=== PATIENT | female | born 1930 | race Caucasian/White ===

== ENCOUNTER 2017-02-23 17:57 | Emergency (ER) | payer MEDICARE, OTHER ==
[~2017-02-23] VITALS: Ht 157.5 cm; Wt 81.0 kg
[~2017-02-23 17:57] MED LIST: ADVIL MIGRAI200 M1 OR; CEFTIN500 MG PO; CIPRO400 MG/200 IV; CIPRO500 MG OR; CLINDAMYCIN150 MG PO; CLINDAMYCIN300 M1 OR; CLONIDINE0.1 MG PO; COZAAR50 MG OR; ENDOCET1 TA1 OR; FISH OIL1000 MG PO; FLURAZEPAM30 MG OR; FLURAZEPAM30 MG PO; HYDROXYZ HCL25 MG PO; KEFLEX500 MG PO; LISINOP/HCTZ1 TAB OR; LOSARTAN/HCT1 TA2 PO; MULT VITAMI1 PO; MULTIVITAMI1 PO; OMEGA-3 FISH1000 MG PO; OXYCO/APAP1 TA5 PO; PAROXETINE HCL40 MG PO; PAROXETINE20 MG PO; PERCOCET 5/325M1 TAB PO; POOR HISTORIAN; PRADAXA150 MG PO; ROXICET1 TA1 OR; ROXICET1 TAB OR; TYLENOL ARTH650 MG OR; VANCOMYCIN HCL1 GM IV; VITAMIN B-12250 MCG PO; VITAMIN D32000 UNI2 PO; ZOSTAVAX IM
[2017-02-23] MEDS ORDERED: BLOOD PRESSURE MED (18:15)
[2017-02-23 18:24] LABS: HEMATOCRIT 36.7 % (37.0-47.0); HEMOGLOBIN 12.1 g/dl (12.0-16.0); IMMATURE GRANULOCYTES 0.3 % (0.0-1.0); MEAN CELL VOLUME 86.2 fL CALC (80.0-100.0); MEAN CORPUSCULAR HGB 28.4 pG CALC (26.0-32.0); RED BLOOD COUNT 4.26 mill/uL (4.20-5.60); RED CELL DISTRI WIDTH 15.7 % (11.5-15.5)
[2017-02-23 18:40] LABS: ALBUMIN 3.9 g/dL (3.2-5.0); ALKALINE PHOSPHATASE 101 u/l (38-126); ANION GAP 15 (6-22 (CALC)); BILIRUBIN, TOTAL 0.3 mg/dL (0.0-1.4); BUN 18 mg/dL (8-23); BUN/CREATININE RATIO 12 (12-20 (CALC)); CARBON DIOXIDE 25 mmol/l (22-30); CHLORIDE 103 mmol/l (95-108); CREATININE 1.6 mg/dL (0.5-1.0); GFR 31 ML/MIN (>=60 (CALC)); GFR FOR AFR.AMER. 37 ML/MIN (>=60 (CALC)); GLUCOSE 101 mg/dL (82-115); POTASSIUM 3.2 mmol/l (3.5-5.1); SGOT/AST 21 u/l (9-36); SGPT/ALT 29 u/l (11-66); SODIUM 140 mmol/l (137-146); TOTAL PROTEIN 6.8 g/dL (6.3-8.2)
[2017-02-23 18:43] LABS: URINE BILIRUBIN - DIPSTICK NEGATIVE (NEGATIVE); URINE BLOOD DIPSTICK NEGATIVE (NEGATIVE); URINE COLOR YELLOW; URINE GLUCOSE - DIPSTICK NEGATIVE (NEGATIVE); URINE KETONE NEGATIVE (NEGATIVE); URINE LEUK ESTERASE NEGATIVE (NEGATIVE); URINE NITRITE - DIPSTICK NEGATIVE (Negative); URINE PROTEIN - DIPSTICK NEGATIVE (NEG-TRACE); URINE UROBILINOGEN - DIPSTICK 0.2 E.U./dL (0.2)
[2017-02-23 19:37] LABS: URINE CLARITY CLEAR
[2017-02-23 21:06] LABS: MYOGLOBIN 56 ng/mL (0 - 62)
[2017-02-23] MEDS ORDERED: POT CHLORIDE20 ME2 PO (21:34)
[2017-02-23 22:36] VITALS: BP 152/74
== END 2017-02-23 22:37 | disposition home or self-care (01) ==
LOC: ED 17:57
PROVIDERS: Emergency Medicine
DX: R60.0 Localized edema (principal); N28.9 Disorder of kidney and ureter, unspecified; E87.6 Hypokalemia; R50.9 Fever, unspecified; R53.1 Weakness; R06.02 Shortness of breath; Z86.73 Personal history of transient ischemic attack (TIA), and cerebral infarction without residual deficits; I10 Essential (primary) hypertension

== ENCOUNTER 2017-02-27 12:20 | Observation (INO) | payer MEDICARE, OTHER ==
[~2017-02-27] VITALS: Ht 157.5 cm; Wt 85.4 kg
[~2017-02-27 12:20] MED LIST changes: +BLOOD PRESSURE MED; +POT CHLORIDE20 ME2 PO
[2017-02-27 18:15] VITALS: BP 158/87
[2017-02-27 19:31] VITALS: BP 139/69
[2017-02-28 04:00] VITALS: BP 123/70
[2017-02-28 05:30] LABS: HEMATOCRIT 34.5 % (37.0-47.0); HEMOGLOBIN 11.2 g/dl (12.0-16.0); MEAN CELL VOLUME 88.5 fL CALC (80.0-100.0); MEAN CORPUSCULAR HGB 28.7 pG CALC (26.0-32.0); MEAN CORPUSCULAR HGB CONC 32.5 g/L CALC (32.0-36.0); RED BLOOD COUNT 3.9 mill/uL (4.20-5.60); RED CELL DISTRI WIDTH 15.6 % (11.5-15.5)
[2017-02-28 05:39] LABS: CALCIUM 8.8 mg/dL (8.4-10.2); CREATININE 1.1 mg/dL (0.5-1.0); POTASSIUM 3.7 mmol/l (3.5-5.1)
[2017-02-28 07:34] VITALS: BP 125/56
== END 2017-02-28 11:10 | disposition home or self-care (01) ==
LOC: ED 12:20 → ED-I 17:11 → ED 17:40 → MS2 17:41
PROVIDERS: ADMIT Internal Medicine; ATTEND Internal Medicine
PROC: 0SSBXZZ Reposition Left Hip Joint, External Approach (ICD-10-PCS; principal; 2017-02-27)
DX: T84.021A Dislocation of internal left hip prosthesis, initial encounter (principal); I10 Essential (primary) hypertension; F41.9 Anxiety disorder, unspecified; M19.90 Unspecified osteoarthritis, unspecified site; Y83.1 Surgical operation with implant of artificial internal device as the cause of abnormal reaction of the patient, or of later complication, without mention of misadventure at the time of the procedure; Z86.73 Personal history of transient ischemic attack (TIA), and cerebral infarction without residual deficits; Z85.038 Personal history of other malignant neoplasm of large intestine; Z92.3 Personal history of irradiation; Z92.21 Personal history of antineoplastic chemotherapy; Z96.653 Presence of artificial knee joint, bilateral; Z93.3 Colostomy status

== ENCOUNTER 2017-04-18 13:05 | Emergency (ER) | payer MEDICARE, OTHER ==
[~2017-04-18] VITALS: Ht 157.5 cm; Wt 82.0 kg
[2017-04-18 14:45] LABS: HEMATOCRIT 40.4 % (37.0-47.0); HEMOGLOBIN 13.1 g/dl (12.0-16.0); IMMATURE GRANULOCYTES 0.2 % (0.0-1.0); MEAN CELL VOLUME 89.4 fL CALC (80.0-100.0); MEAN CORPUSCULAR HGB CONC 32.4 g/L CALC (32.0-36.0); NEUT# 2.97 thou/uL (2.00-7.15); RED BLOOD COUNT 4.52 mill/uL (4.20-5.60); RED CELL DISTRI WIDTH 14.4 % (11.5-15.5)
[2017-04-18 15:01] LABS: ALBUMIN 3.5 g/dL (3.2-5.0); BILIRUBIN, TOTAL 0.4 mg/dL (0.0-1.4); CALCIUM 9.5 mg/dL (8.4-10.2); CREATININE 1.1 mg/dL (0.5-1.0); POTASSIUM 3.3 mmol/l (3.5-5.1)
[2017-04-18 18:29] VITALS: BP 146/67
== END 2017-04-18 18:55 | disposition home or self-care (01) ==
LOC: ED 13:05
PROVIDERS: Emergency Medicine
PROC: 0SSBXZZ Reposition Left Hip Joint, External Approach (ICD-10-PCS; principal; 2017-04-18)
DX: T84.021A Dislocation of internal left hip prosthesis, initial encounter (principal); Y83.1 Surgical operation with implant of artificial internal device as the cause of abnormal reaction of the patient, or of later complication, without mention of misadventure at the time of the procedure; Z96.653 Presence of artificial knee joint, bilateral

== ENCOUNTER 2017-05-15 20:10 | Emergency (ER) | payer MEDICARE, OTHER ==
[~2017-05-15] VITALS: Ht 157.5 cm; Wt 84.0 kg
[~2017-05-15 20:10] MED LIST changes: -BLOOD PRESSURE MED; +LOSARTAN PO
[2017-05-15 20:52] LABS: IMMATURE GRANULOCYTES 0.3 % (0.0-1.0); MEAN CELL VOLUME 90.9 fL CALC (80.0-100.0); MEAN CORPUSCULAR HGB 29.7 pG CALC (26.0-32.0); MEAN CORPUSCULAR HGB CONC 32.6 g/L CALC (32.0-36.0); NEUT# 6.87 thou/uL (2.00-7.15); RED BLOOD COUNT 3.64 mill/uL (4.20-5.60); RED CELL DISTRI WIDTH 15.3 % (11.5-15.5)
[2017-05-15 20:53] LABS: HEMATOCRIT 33.1 % (37.0-47.0)
[2017-05-15 21:26] LABS: ALBUMIN 3.3 g/dL (3.2-5.0); ALKALINE PHOSPHATASE 88 u/l (38-126); AMYLASE 38 u/l (30-110); ANION GAP 16 (6-22 (CALC)); BUN 19 mg/dL (8-23); BUN/CREATININE RATIO 18 (12-20 (CALC)); CARBON DIOXIDE 22 mmol/l (22-30); CHLORIDE 105 mmol/l (95-108); CREATININE 1.1 mg/dL (0.5-1.0); GFR 47 ML/MIN (>=60 (CALC)); GFR FOR AFR.AMER. 57 ML/MIN (>=60 (CALC)); LIPASE 54 u/l (23-300); SGOT/AST 28 u/l (9-36); SGPT/ALT 19 u/l (11-66); SODIUM 138 mmol/l (137-146); TOTAL PROTEIN 5.8 g/dL (6.3-8.2)
[2017-05-15 21:28] LABS: BILIRUBIN, TOTAL 0.8 mg/dL (0.0-1.4)
[2017-05-15] MEDS ORDERED: RESTORIL15 MG PO (21:30)
[2017-05-15 21:38] LABS: MYOGLOBIN 43 ng/mL (0 - 62)
[2017-05-15 22:18] LABS: HEMOGLOBIN 10.8 g/dl (12.0-16.0)
[2017-05-15 23:43] VITALS: BP 146/70
== END 2017-05-15 23:40 ==
LOC: ED 20:10 → ED-I 22:05 → ED 23:40
PROVIDERS: Emergency Medicine
DX: R10.9 Unspecified abdominal pain (principal); K56.609 Unspecified intestinal obstruction, unspecified as to partial versus complete obstruction; R14.0 Abdominal distension (gaseous); Z93.3 Colostomy status; Z85.038 Personal history of other malignant neoplasm of large intestine; R11.2 Nausea with vomiting, unspecified; K44.9 Diaphragmatic hernia without obstruction or gangrene; Z96.642 Presence of left artificial hip joint

== ENCOUNTER 2018-08-18 21:25 | Observation (INO) | payer MEDICARE, OTHER ==
[~2018-08-18] VITALS: Ht 157.5 cm; Wt 86.0 kg
[~2018-08-18 21:25] MED LIST changes: +RESTORIL15 MG PO
[2018-08-18 22:03] LABS: IMMATURE GRANULOCYTES 0.3 % (0.0-5.0); MEAN CELL VOLUME 88.3 fL CALC (80.0-100.0); MEAN CORPUSCULAR HGB 28.4 pG CALC (26.0-32.0); MEAN CORPUSCULAR HGB CONC 32.1 g/L CALC (32.0-36.0); NEUT# 2.59 thou/uL (2.00-7.15); RED BLOOD COUNT 4.69 mill/uL (4.20-5.60); RED CELL DISTRI WIDTH 14.4 % (11.5-15.5)
[2018-08-18 22:04] LABS: HEMATOCRIT 41.4 % (37.0-47.0); HEMOGLOBIN 13.3 g/dl (12.0-16.0)
[2018-08-18 22:16] LABS: ALBUMIN 3.9 g/dL (3.2-5.0); BILIRUBIN, TOTAL 0.6 mg/dL (0.0-1.4); CREATININE 1.1 mg/dL (0.5-1.0); POTASSIUM 3.8 mmol/l (3.5-5.1); TOTAL PROTEIN 6.7 g/dL (6.3-8.2)
[2018-08-19 00:03] LABS: URINE BILIRUBIN - DIPSTICK NEGATIVE (NEGATIVE); URINE BLOOD DIPSTICK TRACE-LYSED (NEGATIVE); URINE COLOR YELLOW; URINE GLUCOSE - DIPSTICK NEGATIVE (NEGATIVE); URINE KETONE TRACE mg/dL (NEGATIVE); URINE LEUK ESTERASE NEGATIVE (NEGATIVE); URINE PROTEIN - DIPSTICK NEGATIVE (NEG-TRACE); URINE UROBILINOGEN - DIPSTICK 0.2 E.U./dL (0.2)
[2018-08-19 00:05] LABS: URINE NITRITE - DIPSTICK POSITIVE (Negative)
[2018-08-19 00:19] LABS: URINE BACTERIA MANY hpf; URINE RBC 0-2 RBC/hpf (0-5); URINE SQUAMOUS EPITHELIAL CELL FEW EPI/hpf (0-FEW); URINE WBC 0-2 WBC/hpf (0-5)
[2018-08-19] MEDS ORDERED: MELATONIN PO (02:14)
[2018-08-19] MEDS ORDERED: POTASSI19 XX (02:14)
[2018-08-19 04:10] VITALS: BP 155/82
[2018-08-19 08:05] VITALS: BP 176/71
[2018-08-19 16:00] VITALS: BP 137/67
[2018-08-19 19:15] VITALS: BP 155/67
[2018-08-19 20:22] LABS: C. DIFFICILE TOXIN A&B NEGATIVE (NEGATIVE)
[2018-08-20 04:01] VITALS: BP 156/63
[2018-08-20 05:28] LABS: HEMATOCRIT 40.9 % (37.0-47.0); HEMOGLOBIN 13.1 g/dl (12.0-16.0); IMMATURE GRANULOCYTES 0.2 % (0.0-5.0); MEAN CELL VOLUME 88.7 fL CALC (80.0-100.0); MEAN CORPUSCULAR HGB 28.4 pG CALC (26.0-32.0); PLATELET COUNT 216 thou/uL (130-400); RED BLOOD COUNT 4.61 mill/uL (4.20-5.60); RED CELL DISTRI WIDTH 14.4 % (11.5-15.5)
[2018-08-20 06:05] LABS: ALBUMIN 3.2 g/dL (3.2-5.0); ALKALINE PHOSPHATASE 104 u/l (38-126); AMYLASE 65 u/l (30-110); ANION GAP 14 (6-22 (CALC)); BUN 16 mg/dL (8-23); BUN/CREATININE RATIO 17 (12-20 (CALC)); CARBON DIOXIDE 20 mmol/l (22-30); CHLORIDE 108 mmol/l (95-108); GFR 53 ML/MIN (>=60 (CALC)); GFR FOR AFR.AMER. > 60 ML/MIN (>=60 (CALC)); LIPASE 124 u/l (23-300); MAGNESIUM 1.7 mg/dL (1.6-2.3); POTASSIUM 3.4 mmol/l (3.5-5.1); SGOT/AST 29 u/l (9-36); SODIUM 139 mmol/l (137-146); TOTAL PROTEIN 5.7 g/dL (6.3-8.2)
[2018-08-20 06:09] LABS: BILIRUBIN, TOTAL 0.3 mg/dL (0.0-1.4)
[2018-08-20 06:40] LABS: MANUAL DIFFERENTIAL YES
[2018-08-20 06:44] LABS: BAND 3 % (0-8)
[2018-08-20 06:45] LABS: OTHER CELL TYPE 6
[2018-08-20 08:59] VITALS: BP 149/68
[2018-08-20 18:32] VITALS: BP 153/76
[2018-08-20 19:31] VITALS: BP 173/70
[2018-08-21 05:13] VITALS: BP 138/75
[2018-08-21 05:51] LABS: HEMATOCRIT 42.9 % (37.0-47.0); HEMOGLOBIN 13.8 g/dl (12.0-16.0); IMMATURE GRANULOCYTES 1.3 % (0.0-5.0); MEAN CELL VOLUME 88.3 fL CALC (80.0-100.0); MEAN CORPUSCULAR HGB 28.4 pG CALC (26.0-32.0); MEAN CORPUSCULAR HGB CONC 32.2 g/L CALC (32.0-36.0); NEUT# 2.61 thou/uL (2.00-7.15); RED BLOOD COUNT 4.86 mill/uL (4.20-5.60); RED CELL DISTRI WIDTH 14.6 % (11.5-15.5)
[2018-08-21 06:12] LABS: ANION GAP 13 (6-22 (CALC)); BUN 17 mg/dL (8-23); BUN/CREATININE RATIO 18 (12-20 (CALC)); CARBON DIOXIDE 20 mmol/l (22-30); CHLORIDE 108 mmol/l (95-108); GFR 53 ML/MIN (>=60 (CALC)); GFR FOR AFR.AMER. > 60 ML/MIN (>=60 (CALC)); MAGNESIUM 1.6 mg/dL (1.6-2.3); POTASSIUM 3.8 mmol/l (3.5-5.1); SODIUM 139 mmol/l (137-146)
[2018-08-21 08:29] VITALS: BP 145/85
[2018-08-21 08:31] VITALS: BP 145/85
[2018-08-21] MEDS ORDERED: LOSARTAN POT25 MG PO (14:48)
[2018-08-21] MEDS ORDERED: LOSARTAN POT50 MG PO (14:52)
[2018-08-21] MEDS ORDERED: KEFLEX500 M1 PO (14:52)
== END 2018-08-21 16:16 | disposition home or self-care (01) ==
LOC: ED 21:25 → ED-I 08-19 01:12 → ED 08-19 01:38 → MS2 08-19 01:39
PROVIDERS: Emergency Medicine; Internal Medicine Nephrology; Nurse Practitioner Family; ADMIT Internal Medicine; ATTEND Internal Medicine
DX: A08.39 Other viral enteritis (principal); N39.0 Urinary tract infection, site not specified; I12.9 Hypertensive chronic kidney disease with stage 1 through stage 4 chronic kidney disease, or unspecified chronic kidney disease; N18.3 Chronic kidney disease, stage 3 (moderate); E87.6 Hypokalemia; E86.0 Dehydration; B96.89 Other specified bacterial agents as the cause of diseases classified elsewhere; Z93.3 Colostomy status; Z85.038 Personal history of other malignant neoplasm of large intestine; Z90.49 Acquired absence of other specified parts of digestive tract; R53.1 Weakness; R42 Dizziness and giddiness; R11.2 Nausea with vomiting, unspecified
CPT/HCPCS: J1650; S0164

== ENCOUNTER 2019-02-14 18:11 | Emergency (ER) | payer MEDICARE, OTHER ==
[~2019-02-14] VITALS: Ht 157.5 cm; Wt 90.0 kg
[~2019-02-14 18:11] MED LIST changes: +AMOXICILLIN/CL875 MG PO; +KEFLEX500 M1 PO; +LOSARTAN POT25 MG PO; +LOSARTAN POT50 MG PO; +MELATONIN PO; +POTASSI19 XX
[2019-02-14 21:28] LABS: HEMATOCRIT 38.4 % (37.0-47.0); HEMOGLOBIN 12.3 g/dl (12.0-16.0); IMMATURE GRANULOCYTES 0.3 % (0.0-5.0); MEAN CELL VOLUME 90.8 fL CALC (80.0-100.0); MEAN CORPUSCULAR HGB 29.1 pG CALC (26.0-32.0); NEUT# 3.69 thou/uL (2.00-7.15); RED BLOOD COUNT 4.23 mill/uL (4.20-5.60); RED CELL DISTRI WIDTH 14.7 % (11.5-15.5)
[2019-02-14 21:30] LABS: URINE BLOOD DIPSTICK NEGATIVE (NEGATIVE); URINE COLOR YELLOW; URINE GLUCOSE - DIPSTICK NEGATIVE (NEGATIVE); URINE KETONE NEGATIVE (NEGATIVE); URINE LEUK ESTERASE NEGATIVE (NEGATIVE); URINE NITRITE - DIPSTICK NEGATIVE (Negative); URINE PROTEIN - DIPSTICK TRACE mg/dL (NEG-TRACE); URINE SPECIFIC GRAVITY 1.025; URINE UROBILINOGEN - DIPSTICK 0.2 E.U./dL (0.2)
[2019-02-14 21:31] LABS: URINE BILIRUBIN - DIPSTICK NEGATIVE (NEGATIVE)
[2019-02-14 21:45] LABS: ALBUMIN 3.9 g/dL (3.2-5.0); ALKALINE PHOSPHATASE 92 u/l (38-126); ANION GAP 13 (6-22 (CALC)); BILIRUBIN, TOTAL 0.4 mg/dL (0.0-1.4); BUN 22 mg/dL (8-23); BUN/CREATININE RATIO 16 (12-20 (CALC)); CARBON DIOXIDE 25 mmol/l (22-30); CHLORIDE 105 mmol/l (95-108); CREATININE 1.4 mg/dL (0.5-1.0); GFR 36 ML/MIN (>=60 (CALC)); GFR FOR AFR.AMER. 43 ML/MIN (>=60 (CALC)); POTASSIUM 3.4 mmol/l (3.5-5.1); SGOT/AST 28 u/l (9-36); SODIUM 140 mmol/l (137-146); TOTAL PROTEIN 7.1 g/dL (6.3-8.2)
[2019-02-14 21:57] LABS: MYOGLOBIN 95 ng/mL (0 - 62)
[2019-02-14] MEDS ORDERED: AMOX/K CLAV875 M1 PO (22:13)
[2019-02-14 22:48] VITALS: BP 132/69
== END 2019-02-14 22:48 | disposition home or self-care (01) ==
LOC: ED 18:11
PROVIDERS: Emergency Medicine
DX: S81.851A Open bite, right lower leg, initial encounter (principal); L03.115 Cellulitis of right lower limb; I10 Essential (primary) hypertension; W55.01XA Bitten by cat, initial encounter; Y92.009 Unspecified place in unspecified non-institutional (private) residence as the place of occurrence of the external cause

== ENCOUNTER 2019-08-31 12:01 | Emergency (ER) | payer MEDICARE, OTHER ==
[~2019-08-31 12:01] MED LIST changes: +AMOX/K CLAV875 M1 PO
[2019-08-31 13:26] LABS: HEMATOCRIT 39.9 % (37.0-47.0); HEMOGLOBIN 12.7 g/dl (12.0-16.0); IMMATURE GRANULOCYTES 0.3 % (0.0-5.0); MEAN CELL VOLUME 89.1 fL CALC (80.0-100.0); MEAN CORPUSCULAR HGB 28.3 pG CALC (26.0-32.0); MEAN CORPUSCULAR HGB CONC 31.8 g/dL CAL (32.0-36.0); NEUT# 4.72 thou/uL (2.00-7.15); RED BLOOD COUNT 4.48 mill/uL (4.20-5.60); RED CELL DISTRI WIDTH 14.8 % (11.5-15.5)
[2019-08-31 13:44] LABS: ALBUMIN 3.9 g/dL (3.2-5.0); CREATININE 1.2 mg/dL (0.5-1.0); POTASSIUM 3.9 mmol/l (3.5-5.1); TOTAL PROTEIN 6.9 g/dL (6.3-8.2)
[2019-08-31 13:49] LABS: BILIRUBIN, TOTAL 1.1 mg/dL (0.0-1.4)
[2019-08-31] MEDS ORDERED: CEPHALEXIN500 M1 PO (16:36)
[2019-08-31 17:39] VITALS: BP 194/88
== END 2019-08-31 17:37 | disposition home or self-care (01) ==
LOC: ED 12:01
PROVIDERS: Family Medicine
DX: L03.116 Cellulitis of left lower limb (principal); I10 Essential (primary) hypertension; M79.605 Pain in left leg

== ENCOUNTER 2019-09-02 11:32 | Inpatient (IN) | payer MEDICARE, OTHER ==
[~2019-09-02] VITALS: Ht 160 cm; Wt 85.6 kg
[~2019-09-02 11:32] MED LIST changes: +CEPHALEXIN500 M1 PO
--- NOTE | 2019-09-02 11:53 | NUR ---
Pt to room # 10 via W/C for bedside triage
[2019-09-02 13:29] LABS: HEMATOCRIT 39.5 % (37.0-47.0); HEMOGLOBIN 12.7 g/dl (12.0-16.0); IMMATURE GRANULOCYTES 0.4 % (0.0-5.0); MEAN CELL VOLUME 89.2 fL CALC (80.0-100.0); MEAN CORPUSCULAR HGB 28.7 pG CALC (26.0-32.0); MEAN CORPUSCULAR HGB CONC 32.2 g/dL CAL (32.0-36.0); NEUT# 2.7 thou/uL (2.00-7.15); RED BLOOD COUNT 4.43 mill/uL (4.20-5.60); RED CELL DISTRI WIDTH 14.7 % (11.5-15.5)
[2019-09-02 13:48] LABS: ALBUMIN 4.1 g/dL (3.2-5.0); BILIRUBIN, TOTAL 0.7 mg/dL (0.0-1.4); CREATININE 1.2 mg/dL (0.5-1.0); POTASSIUM 3.6 mmol/l (3.5-5.1); TOTAL PROTEIN 7.4 g/dL (6.3-8.2)
[2019-09-02] MEDS ORDERED: LOSARTAN POTAS100 MG PO (13:59)
[2019-09-02] MEDS ORDERED: LOSARTAN POTASS50 MG PO (14:00)
[2019-09-02] MEDS ORDERED: MONTELUKAST SOD10 MG PO (14:00)
--- NOTE | 2019-09-02 14:00 | NUR ---
Pt ambulated to bathroom with cane assist
[2019-09-02] MEDS ORDERED: GABAPENTIN100 MG PO (14:01)
[2019-09-02] MEDS ORDERED: MYRBETRIQ50 MG PO (14:01)
[2019-09-02 14:22] LABS: INTERNATIONAL NORMALIZED RATIO 0.9 RATIO (0.7-1.3); PROTHROMBIN TIME 9.6 SECONDS (9.0-12.5)
[2019-09-02 14:40] LABS: URINE BILIRUBIN - DIPSTICK NEGATIVE (NEGATIVE); URINE BLOOD DIPSTICK NEGATIVE (NEGATIVE); URINE COLOR YELLOW; URINE GLUCOSE - DIPSTICK NEGATIVE (NEGATIVE); URINE KETONE NEGATIVE (NEGATIVE); URINE LEUK ESTERASE NEGATIVE (NEGATIVE); URINE NITRITE - DIPSTICK NEGATIVE (Negative); URINE PROTEIN - DIPSTICK NEGATIVE (NEG-TRACE); URINE SPECIFIC GRAVITY 1.015; URINE UROBILINOGEN - DIPSTICK 0.2 E.U./dL (0.2)
--- NOTE | 2019-09-02 14:58 | NUR ---
Report to Pearl MALAGON. Pt taken to room 270 via stretcher in stable condition.
--- NOTE | 2019-09-02 15:10 | NUR ---
PT ARRIVED TO UNIT VIA STRETCHER WITH ER STAFF; ALERT AND OREINTED X 3. AMBULATED TO BED INDEPENDENTLY WITH CANE. VANCO INFUSING UPON ARRIVAL; IV SITE APPEARS HEALTHY. PT C/O 10/29 LLE AT SITE OF CELLULITIS. RESPIRATIONS EVEN AND UNLABORED ON ROOM AIR. PT PLEASANT AND COOPERATIVE. LUNGS ARE CLEAR; COLOSTOMY TO LLQ OF ABDOMEN; LLE VERY RED, WARM, AND SWOLLEN. OREINTED TO ROOM AND CALL LIGHT SYSTEM. PLAN OF CARE DISCUSSED. PT ENCOURAGED TO VERBALIZE CONCERNS. STATES UNDERSTANDING. SAFETY MEASURES IN PLACE. CALL LIGHT WITHIN REACH.
[2019-09-02 15:15] VITALS: BP 181/89
--- NOTE | 2019-09-02 16:05 | NUR ---
NEW ORDER RECEIVED FOR IBU FOR PAIN PER PT REQUEST. PT RESTING IN BED SEMI FOWLERS SPEAKING ON CELL PHONE WITH [employer] FAMILY MEM[employer]ERS.
--- NOTE | 2019-09-02 16:17 | NUR ---
NORMAL SALINE IVF INITIATED; IV SITE APPEARS HEALTHY AND FLUSHES.
--- NOTE | 2019-09-02 17:00 | NUR ---
PT AMBULATED INTO BATHROOM WITH CANE FOR CLEAR PALE YELLOW VOID.
[2019-09-02 17:29] VITALS: BP 146/80
[2019-09-02 19:25] VITALS: BP 156/75
--- NOTE | 2019-09-02 19:53 | NUR ---
PT ASSESSEMENT COMPLETED, REDNESS TO TO RLE W/MARKING OF REDNESS. LOCX4 . PM MEDICATIONS ADMINISTERED ORDERS PROVIDE. NO S/O DISTRESS NOTED. PT TALKATIVE.
--- NOTE | 2019-09-02 22:50 | NUR ---
PT ASSISTED GETTING COMFORTABLE IN THE BED. DENIES ANY OTHER NEEDS AT THIS TIME. CALL LIGHT AT SIDE.
--- NOTE | 2019-09-03 03:02 | NUR ---
PT SLEEPING, NO S/O DISTRESS NOTED.
[2019-09-03 04:38] VITALS: BP 148/72
[2019-09-03 05:06] LABS: HEMATOCRIT 35.5 % (37.0-47.0); HEMOGLOBIN 11.2 g/dl (12.0-16.0); MEAN CELL VOLUME 89.6 fL CALC (80.0-100.0); MEAN CORPUSCULAR HGB 28.3 pG CALC (26.0-32.0); MEAN CORPUSCULAR HGB CONC 31.5 g/dL CAL (32.0-36.0); NEUT# 1.64 thou/uL (2.00-7.15); RED BLOOD COUNT 3.96 mill/uL (4.20-5.60); RED CELL DISTRI WIDTH 14.6 % (11.5-15.5)
[2019-09-03 05:13] LABS: ANION GAP 8 (6-22 (CALC)); BUN 16 mg/dL (8-23); BUN/CREATININE RATIO 17 (12-20 (CALC)); CARBON DIOXIDE 24 mmol/l (22-30); CHLORIDE 109 mmol/l (95-108); GFR 52 ML/MIN (>=60 (CALC)); GFR FOR AFR.AMER. > 60 ML/MIN (>=60 (CALC)); POTASSIUM 3.4 mmol/l (3.5-5.1); SODIUM 138 mmol/l (137-146)
--- NOTE | 2019-09-03 05:19 | NUR ---
PT UP TO RESTROOM, IVF REPLENISHED AT THIS TIME. AIDE IS IN W/PT. NO S/O DISTRESS NOTED.
--- NOTE | 2019-09-03 06:29 | NUR ---
PT MEDICATED FOR PAIN 7/10 ON PAIN SCALE.
--- NOTE | 2019-09-03 07:35 | NUR ---
REPORT RECEIVED. PT RESTING IN BED; ALERT AND ORIENTED; FORGETFUL AT TIMES. BLOOD PRESSURE ELEVATED; WILL GIVE SCHEDULED MEDICATION EARLY. C/O MILD PAIN TO LLE. RESPIRATIONS EVEN AND UNLABORED ON ROOM AIR. IV FLUIDS INFUSING WITHOUT DIFFICULTY; IV SITE APPEARS HEALTHY. SAFETY MEASURES IN PLACE. CALL LIGHT WITHIN REACH.
[2019-09-03 08:00] VITALS: BP 179/80
[2019-09-03 10:40] VITALS: BP 144/80
--- NOTE | 2019-09-03 12:00 | NUR ---
PT ENCOURAGED TO REPOSITION HERSELF IN BED; AMBULATES TO BATHROOM WITH CANE AND STAND BY ASSIST. NO REQUESTS OR CONCERNS AT THIS TIME. CALL LIGHT WITHIN REACH.
--- NOTE | 2019-09-03 15:48 | NUR ---
PT RESTING SEMI FOWLERS WITH EYES CLOSED AND NO SIGNS OF DISTRESS. GRANDSON IS BRINGING COLOSTOMY WAFTER SO PT CAN CHANGE COLOSTOMY.
[2019-09-03 15:52] VITALS: BP 171/80
[2019-09-03 19:18] VITALS: BP 137/68
--- NOTE | 2019-09-03 20:18 | NUR ---
PT. UP ON THE SIDE OF THE BED AND ASSISTED TO AMBULATE TO THE BATHROOM TO VOID AND ASSISTED BACK TO BED. ASSESSMENT COMPLETED. PT. IS RE-EDUCATED TO CALL FOR ALL OOB NEEDS. IV SITE PATENT AND ORDERED IVF INFUSING WELL. REDNESS NOTED TO LLE AND PT. C/O PAIN TO LLE AND MEDICATED WITH ORDERED PRN TYLENOL AND MOTRIN, WILL REASSESS.PT. WITH COLOSTOMY TO LLQ AND PT. CARES FOR THIS HERSELF. ENCOURAGED TO CALL FOR ANY NEEDS. CALL LIGHT IS IN REACH. WILL CONTINUE TO MONITOR.
--- NOTE | 2019-09-04 | NUR ---
PT. EMPTIED HER OWN COLOSTOMY AND WAS ASSISTED BACK TO BED. DENIES NEEDS. ENCOURAGED TO CALL FOR ANY NEEDS. CALL LIGHT IS IN REACH.
[2019-09-04 04:23] VITALS: BP 157/73
--- NOTE | 2019-09-04 04:23 | NUR ---
VSS. NO DISTRESS NOTED. STBY ASST. GIVEN FOR PT. TO THE BATHROOM AND BACK INTO BED. DENIES NEEDS. CALL LIGHT IS IN REACH. WILL CONTINUE TO MONITOR.
[2019-09-04 05:12] LABS: HEMATOCRIT 35.9 % (37.0-47.0); HEMOGLOBIN 11.4 g/dl (12.0-16.0); IMMATURE GRANULOCYTES 0.2 % (0.0-5.0); MEAN CORPUSCULAR HGB 28.6 pG CALC (26.0-32.0); MEAN CORPUSCULAR HGB CONC 31.8 g/dL CAL (32.0-36.0); NEUT# 1.72 thou/uL (2.00-7.15); RED BLOOD COUNT 3.99 mill/uL (4.20-5.60); RED CELL DISTRI WIDTH 14.6 % (11.5-15.5)
[2019-09-04 05:22] LABS: ALKALINE PHOSPHATASE 74 u/l (38-126); ANION GAP 7 (6-22 (CALC)); BUN 17 mg/dL (8-23); BUN/CREATININE RATIO 18 (12-20 (CALC)); CARBON DIOXIDE 23 mmol/l (22-30); CHLORIDE 112 mmol/l (95-108); CREATININE 0.9 mg/dL (0.5-1.0); GFR 59 ML/MIN (>=60 (CALC)); GFR FOR AFR.AMER. > 60 ML/MIN (>=60 (CALC)); POTASSIUM 3.9 mmol/l (3.5-5.1); SGOT/AST 21 u/l (9-36); SODIUM 138 mmol/l (137-146)
[2019-09-04 05:32] LABS: BILIRUBIN, TOTAL 0.4 mg/dL (0.0-1.4); TOTAL PROTEIN 5.7 g/dL (6.3-8.2)
--- NOTE | 2019-09-04 07:50 | NUR ---
REPORT RECEIVED FROM MANAS RAMOS. PT RESTING IN BED SEMI FOWLERS; ALERT AND ORIENTED. C/O MILD PAIN TO LLE. RESPIRATIONS EVEN AND UNLABORED ON ROOM AIR. IV FLUIDS INFUSING WITHOUT DIFFICUTLY; IV SITE APPEARS HEALTY. PLAN OF CARE REVIEWED. PT ENCOURAGED TO VERBALIZE CONCERNS. STATES UNDERSTANDING. SAFETY MEASURES IN PLACE. CALL LIGHT WITHIN REACH.
[2019-09-04 08:00] VITALS: BP 179/91
[2019-09-04] MEDS ORDERED: DOXYCYCL HYC100 MG PO (11:29)
[2019-09-04 12:07] VITALS: BP 192/95
--- NOTE | 2019-09-04 13:42 | NUR ---
PT AMBULATED TO BATHROOM; CHANGED HER COLOSTOMY WAFER AND BAG.
--- NOTE | 2019-09-04 14:00 | NUR ---
IV site discontinued, cath intact. No edema , no redness, voices no discomfort.
[2019-09-04 14:45] VITALS: BP 158/83
--- NOTE | 2019-09-04 14:49 | NUR ---
Discharge instructions given. Patient verbalizes understanding of same. Discharged in condition via Wheelchair to with . All belongings sent with pt.
== END 2019-09-04 14:49 | disposition home or self-care (01) | DRG 603 ==
LOC: ED 11:32 → ED-I 12:12 → ED 14:06 → ED-I 14:07 → MS2 14:29
PROVIDERS: Nurse Practitioner Family; ADMIT Internal Medicine; ATTEND Internal Medicine
DX: L03.116 Cellulitis of left lower limb (principal); L03.115 Cellulitis of right lower limb; I12.9 Hypertensive chronic kidney disease with stage 1 through stage 4 chronic kidney disease, or unspecified chronic kidney disease; N18.3 Chronic kidney disease, stage 3 (moderate); E87.6 Hypokalemia; Z93.3 Colostomy status; Z85.038 Personal history of other malignant neoplasm of large intestine; Z11.59 Encounter for screening for other viral diseases; M79.605 Pain in left leg; R42 Dizziness and giddiness
CPT/HCPCS: J1650

== ENCOUNTER 2019-11-27 00:49 | Observation (INO) | payer MEDICARE, OTHER ==
[~2019-11-27] VITALS: Ht 160 cm; Wt 86.9 kg
[~2019-11-27 00:49] MED LIST changes: +DOXYCYCL HYC100 MG PO; +GABAPENTIN100 MG PO; +LOSARTAN POTAS100 MG PO; +LOSARTAN POTASS50 MG PO; +MONTELUKAST SOD10 MG PO; +MYRBETRIQ50 MG PO
[2019-11-27 01:23] LABS: HEMATOCRIT 40.9 % (37.0-47.0); HEMOGLOBIN 12.7 g/dl (12.0-16.0); IMMATURE GRANULOCYTES 0.5 % (0.0-5.0); MEAN CELL VOLUME 89.7 fL CALC (80.0-100.0); MEAN CORPUSCULAR HGB 27.9 pG CALC (26.0-32.0); MEAN CORPUSCULAR HGB CONC 31.1 g/dL CAL (32.0-36.0); NEUT# 13.26 thou/uL (2.00-7.15); RED BLOOD COUNT 4.56 mill/uL (4.20-5.60); RED CELL DISTRI WIDTH 14.5 % (11.5-15.5)
[2019-11-27 01:45] LABS: ALBUMIN 3.9 g/dL (3.2-5.0); ALKALINE PHOSPHATASE 105 u/l (38-126); AMYLASE 48 u/l (30-110); ANION GAP 13 (6-22 (CALC)); BILIRUBIN, TOTAL 0.8 mg/dL (0.0-1.4); BUN 17 mg/dL (8-23); BUN/CREATININE RATIO 18 (12-20 (CALC)); CARBON DIOXIDE 24 mmol/l (22-30); CHLORIDE 103 mmol/l (95-108); GFR 52 ML/MIN (>=60 (CALC)); GFR FOR AFR.AMER. > 60 ML/MIN (>=60 (CALC)); LIPASE 87 u/l (23-300); POTASSIUM 4.3 mmol/l (3.5-5.1); SGOT/AST 46 u/l (9-36); SODIUM 136 mmol/l (137-146); TOTAL PROTEIN 6.6 g/dL (6.3-8.2)
--- NOTE | 2019-11-27 01:53 | NUR ---
PT RESTING. NAD. LABS DRAWN/FLUIDS AND MEDS GIVEN.
[2019-11-27 01:57] LABS: MYOGLOBIN 34 ng/mL (0 - 62)
--- NOTE | 2019-11-27 02:30 | NUR ---
CULTURES AND SWABS COMPLETED. ANTIBIOTICS HUNG. EKG DONE. PT UNABLE TO VOID. PT TO CT FOR CT AND XRAY.
--- NOTE | 2019-11-27 04:20 | NUR ---
PT STILL UNABLE TO VOID ON BEDPAN. FEELS LIKE SHE IS TOO WEAK FOR A BSC. DR TO BEDSIDE TO RE-EVAL. MINI CATH DONE FOR URINE SAMPLE. CLEAR JU URINE. BLANKET GIVEN. VSS. REPEAT EKG DONE AT DR REQUEST. PT STATES THAT THE REDDNESS ON RIGHT LOWER LEG IS SOMETHING NEW...BUT STATES THAT SHE WAS HOSPITALIZED IN THE PAST FOR IT.
[2019-11-27 04:30] LABS: URINE BILIRUBIN - DIPSTICK NEGATIVE (NEGATIVE); URINE BLOOD DIPSTICK SMALL (NEGATIVE); URINE COLOR YELLOW; URINE GLUCOSE - DIPSTICK NEGATIVE (NEGATIVE); URINE KETONE NEGATIVE (NEGATIVE); URINE LEUK ESTERASE NEGATIVE (NEGATIVE); URINE NITRITE - DIPSTICK NEGATIVE (Negative); URINE PH 5.5 (4.5-8.0); URINE PROTEIN - DIPSTICK NEGATIVE (NEG-TRACE); URINE SPECIFIC GRAVITY 1.025; URINE UROBILINOGEN - DIPSTICK 0.2 E.U./dL (0.2)
[2019-11-27 04:48] LABS: URINE EPITHELIAL CELLS FEW EPI/hpf (0-FEW); URINE YEAST FEW hpf
[2019-11-27 04:49] LABS: URINE BACTERIA FEW hpf
--- NOTE | 2019-11-27 05:44 | NUR ---
PT RESTING. AWAITING ADMIT BED. VSS.
--- NOTE | 2019-11-27 06:41 | NUR ---
REPORT TO MANAS GARCIA.
--- NOTE | 2019-11-27 06:58 | NUR ---
PT STATES THAT SHE COUGHED AND URINATED...ASKED FOR A PAD. ATTENDS PLACED ON PT. PREPARED FOR TRANSPORT TO ROOM 279. TO FLOOR WITH O2/POCKET MONITOR. PHONE/HEALTH SYSTEMS ANALYST/CANE AND CARDS IN BAG WITH PT. NO VOMITING WHILE HERE. VSS.
[2019-11-27 07:15] VITALS: BP 154/62
--- NOTE | 2019-11-27 08:10 | NUR ---
[facility] PT FEELS SHAKY AND COLD.CHECK TEMP AND IS 97.7. PT SEEMS ANXIOUS. TELE IN PLACE. 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 PT STATED THAT HER DAUGHTER IS HELPING HER NOW. SAFETY PRECAUTIONS REINFORCED AND CALL LIGHT IN REACH. JESSICA CLINE IN ROOM SAID TO CHECK HER ACCU 127. PT NPO.
--- NOTE | 2019-11-27 09:17 | NUR ---
ASSESSMENT DONE. PT IS A&O X3 BUT FORGETFUL AT TIMES. MODERATED REDNESS IN RIGHT LEG. TELE IN PLACE. IVF INFUSING WELL. PT DENIES ANY NEEDS AT THIS TIME. CALL LIGHT IN REACH.
[2019-11-27 12:00] VITALS: BP 123/59
--- NOTE | 2019-11-27 12:03 | NUR ---
PT IS EATING HER LUNCH WITH NO S/S OF DISTRESS NOTED. PT DENIES ANY OTHER NEEDS AT THIS TIME. CALL LIGHT IN REACH.
--- NOTE | 2019-11-27 13:50 | NUR ---
CALLED DR. LANDRY ABOUT HIS CONSULTATION. HE STATED THANK YOU FOR LETTING ME KNOW.
--- NOTE | 2019-11-27 13:57 | NUR ---
CALLED DR. AYALA REGARDING CONSULTATION FOR THIS PT. SPOKE TO HIM DIRECTLY AND STATED THANKS FOR LETTING HIM KNOW ABOUT THE CONSULTATION.
[2019-11-27 15:53] VITALS: BP 122/66
[2019-11-27] MEDS ORDERED: LOSARTAN POTASS25 MG PO (16:04)
--- NOTE | 2019-11-27 16:15 | NUR ---
PT IS RESTING IN BED WITH NO S/S OF DISTRESS NOTED. PT DENIES ANY NEEDS AT THIS TIME. CALL LIGHT IN REACH.
[2019-11-27 19:00] VITALS: BP 154/77
[2019-11-28] VITALS: BP 140/68
--- NOTE | 2019-11-28 01:12 | NUR ---
RECIEVED FROM RN PT RESTING IN SEMI FOWLERS POSITION UPON ENTERING ROOM.ASSESSMENT AND VITALS COMPLETE; DISCUSSED POC. PT IS A/O X3. RESPRIATIONS ARE EVEN AND UNLABORED WITH NO SIGNS OF DISTRESS NOTED. LUNG SOUNDS ARE NORMAL WITH NO SOB, HEART RHYTHM SOUNDS NORMAL WITH TELE IN PLACE. RADIAL PULSES ARE STRONG. #18G IN LAC FLUSHED, SITE APPEARS HEALTHY AND PATENT. PT REPORT HEADACHE AND SORE THROAT.CALL DUTTA WITHIN REACH. WILL CONTINUE TO MONITOR.
--- NOTE | 2019-11-28 02:09 | NUR ---
ED CALLED TO REPORT MATZO FORMING MACHINE OPERATOR HAS LEAD FAIL. FIXED TELE LEADS AND CONFIRMED W/ED FOR PROPER READING. HR REPORTED IN 84SR. NO S/O DISTRESS NOTED.
[2019-11-28 04:00] VITALS: BP 143/73
--- NOTE | 2019-11-28 04:51 | NUR ---
PT IS RESTING IN BED WITH NO S/S OF DISTRESS NOTED. TELE IN PLACE. IV PATENT WITH NO REDDNESS OR SWELLING. PT DENIES ANY NEEDS AT THIS TIME. CALL LIGHT IN REACH.
[2019-11-28 05:04] LABS: HEMATOCRIT 38.3 % (37.0-47.0); HEMOGLOBIN 11.7 g/dl (12.0-16.0); IMMATURE GRANULOCYTES 0.3 % (0.0-5.0); MEAN CELL VOLUME 91.2 fL CALC (80.0-100.0); MEAN CORPUSCULAR HGB 27.9 pG CALC (26.0-32.0); MEAN CORPUSCULAR HGB CONC 30.5 g/dL CAL (32.0-36.0); NEUT# 7.49 thou/uL (2.00-7.15); RED BLOOD COUNT 4.2 mill/uL (4.20-5.60); RED CELL DISTRI WIDTH 14.6 % (11.5-15.5)
[2019-11-28 05:25] LABS: ALKALINE PHOSPHATASE 82 u/l (38-126); ANION GAP 10 (6-22 (CALC)); BILIRUBIN, TOTAL 0.9 mg/dL (0.0-1.4); BUN 15 mg/dL (8-23); BUN/CREATININE RATIO 15 (12-20 (CALC)); CARBON DIOXIDE 22 mmol/l (22-30); CHLORIDE 108 mmol/l (95-108); GFR 52 ML/MIN (>=60 (CALC)); GFR FOR AFR.AMER. > 60 ML/MIN (>=60 (CALC)); POTASSIUM 3.8 mmol/l (3.5-5.1); SGOT/AST 39 u/l (9-36); SODIUM 136 mmol/l (137-146); TOTAL PROTEIN 5.6 g/dL (6.3-8.2)
[2019-11-28 05:26] LABS: ALBUMIN 3.1 g/dL (3.2-5.0)
--- NOTE | 2019-11-28 07:40 | NUR ---
REPORT RECEIVED FROM MANAS MENENDEZ. PT RESTING IN BED SUPINE; ALERT AND ORIENTED. DENIES PAIN. C/O NAUSEA; HOB ELEVATED TO AT LEAST 30 DEGREES. RESPIRATIONS EVEN AND UNLABORED ON ROOM AIR AT REST; HAS EXERTIONAL SOB. HR IRREGULAR; TRACE EDEMA. PLAN OF CARE REVIEWED. PT ENCOURAGED TO VERBALIZE CONCERNS. STATES UNDERSTANDING. SAFETY MEASURES IN PLACE. CALL LIGHT WITHIN REACH.
[2019-11-28 07:44] VITALS: BP 158/81
--- NOTE | 2019-11-28 07:46 | NUR ---
PT note Patient is screened for interevention and she would benefit from PT referral
--- NOTE | 2019-11-28 08:49 | NUR ---
PT AMBULATED TO BATHROOM TO VOID; HAS STRESS INCONTINENCE. HAS EXERTIONAL SOB; SPO2 AFTER AMBULATION IS 89-94% ON ROOM AIR. OXYGEN APPLIED AT 2L VIA NC FOR COMFORT. PT EDUCATED ON BREATHING TECHNIQUES.
--- NOTE | 2019-11-28 09:55 | NUR ---
PT CONTINUES TO C/O PERSISTENT NAUSEA AND FEELING POORLY. PT STATES, "I DON'T REMEMBER FEELING SO BAD" AND "I'D RATHER BE THAN FEEL LIKE THIS." ZOFRAN AND PROTONIX GIVEN PER ONE TIME ORDER; MD AND PHARMACY AWARE OF EXTENSIVE ALLERGY LIST; PT INSTRUCTED TO NOTIFY NURSE OF ANY S/S OF ALLERGIC REACTION OR CHANGE IN CONDITION. WILL CLOSELY MONITOR.
[2019-11-28 11:22] VITALS: BP 145/80
--- NOTE | 2019-11-28 12:30 | NUR ---
ZOFRAN WAS EFFECTIVE FOR NAUSEA WITH NO NOTED ALLERGIES OR NEW SYMPTOMS. PT RESTING IN BED WITH NO COMPLAINTS OR CONCERNS. ZOSYN INFUSING; IV SITE APPEARS HEALTHY. CALL LIGHT WITHIN REACH.
[2019-11-28 15:14] VITALS: BP 151/74
--- NOTE | 2019-11-28 16:00 | NUR ---
AMBULATING TO BATHROOM TO VOID CLEAR YELLOW URINE; EACH TIME WITH SMALL STRESS INCONTINENCE; NEW BRIEF LINERS PROVIDED. PT REMOVED OXYGEN AND IS CURRENTLY ON ROOM AIR; SPO2 REMAINS GREATER THAN 92%. PT DOING MORE FOR HERSELF AND IMPROVED WITH BREATHING.
[2019-11-28 19:00] VITALS: BP 155/74
--- NOTE | 2019-11-28 20:20 | NUR ---
REPORT RECEIVED FROM MANAS CANCHOLA. PT RESTING IN BED SUPINE; ASSESSMENT AND VITALS COMPLETE ALERT AND ORIENTED. PT DENIES PAIN. RESPIRATIONS EVEN AND UNLABORED ON ROOM AIR AT REST; SOB UPON EXERTION. TELEMENTRY IN PLACE IN NSR; TRACE EDEMA. PLAN OF CARE REVIEWED. PT ENCOURAGED TO VERBALIZE CONCERNS. STATES UNDERSTANDING. SAFETY MEASURES IN PLACE. CALL LIGHT WITHIN REACH.
--- NOTE | 2019-11-28 20:27 | NUR ---
PT CALLED TO ASK IF I COULD TALK W/HER NIECE ON HER CELLPHONE TO UPDATE HER ON HER STATUS OF CARE AND PLAN OF CARE. W/PT'S PERMISSION I DISCUSSED POC OF THIS TIME WITH NIECE WHO STATED THAT SHE LIVES OUT OF STATE BUT CAN COME HELP TAKE CARE OF HER AUNT IF NEED BE IF SURGERY IS REQUIRED. PT GAVE PERMISSION FOR PASSCODE TO BE GIVEN TO HER NIECE FOR MEDICAL INFORMATION TO BE PROVIDED NEEDED FOR CARE NEEDS.
--- NOTE | 2019-11-28 20:32 | NUR ---
PT REQUESTING LOTION BE APPLIED TO HER LOWER EXT, PATTERN DUPLICATOR APPLIED LOTION REQUESTED AND REPOSITIONED PT IN THE BED. NEW GOWN HAS BEEN PLACED BY SPACE OPERATIONS ALSO AT THIS TIME. FRESH ICE WATER PROVIDED NOW, PT DENIES ANY OTHER NEEDS, CALL LIGHT W/IN REACH.
[2019-11-29] VITALS (7 sets, daily range): BP systolic 136–174; BP diastolic 68–93
--- NOTE | 2019-11-29 00:01 | NUR ---
PT C/O NAUSEA AND FEELING POORLY. PRN ZOFRAN PROVIDED. PT ENCOURAGED TO NOTIFY NURSE OF CONTINUED NAUSEA OR CHANGE IN CONDITION. WILL CONTINUE TO MONITOR.
--- NOTE | 2019-11-29 03:35 | NUR ---
PT UP TO BSC AND BACK TO BED. NO S/O DISTRESS NOTED. OXYGEN 92-94% ON RA AT THIS TIME. V/S ASSESSED. BP ELEVATED, WILL REASSESS W/FOLLOW-UP
--- NOTE | 2019-11-29 05:17 | NUR ---
IV ANTIBIOTIC THERAPY ADMINISTERED AT THIS TIME. NO S/O DISTRESS NOTED.
[2019-11-29 05:23] LABS: HEMATOCRIT 37.3 % (37.0-47.0); HEMOGLOBIN 11.4 g/dl (12.0-16.0); IMMATURE GRANULOCYTES 0.2 % (0.0-5.0); MEAN CELL VOLUME 89.4 fL CALC (80.0-100.0); MEAN CORPUSCULAR HGB 27.3 pG CALC (26.0-32.0); MEAN CORPUSCULAR HGB CONC 30.6 g/dL CAL (32.0-36.0); NEUT# 3.23 thou/uL (2.00-7.15); RED BLOOD COUNT 4.17 mill/uL (4.20-5.60); RED CELL DISTRI WIDTH 14.6 % (11.5-15.5)
[2019-11-29 05:50] LABS: ALBUMIN 3.2 g/dL (3.2-5.0); ALKALINE PHOSPHATASE 87 u/l (38-126); ANION GAP 10 (6-22 (CALC)); BILIRUBIN, TOTAL 1.2 mg/dL (0.0-1.4); BUN 12 mg/dL (8-23); BUN/CREATININE RATIO 13 (12-20 (CALC)); CARBON DIOXIDE 23 mmol/l (22-30); CHLORIDE 107 mmol/l (95-108); CREATININE 0.9 mg/dL (0.5-1.0); GFR 59 ML/MIN (>=60 (CALC)); GFR FOR AFR.AMER. > 60 ML/MIN (>=60 (CALC)); POTASSIUM 3.2 mmol/l (3.5-5.1); SGOT/AST 35 u/l (9-36); SODIUM 137 mmol/l (137-146); TOTAL PROTEIN 5.8 g/dL (6.3-8.2)
--- NOTE | 2019-11-29 07:40 | NUR ---
REPORT RECEIVED FROM MANAS MENENDEZ. PT RESTING IN BED SEMI FOWLERS WITH EYES CLOSED AND NO SIGNS OF DISTRESS. DENIES PAIN. RESPIRATIONS EVEN AND UNLABORED ON ROOM AIR. SHE DOES C/O MILD NAUSEA. TELE ON. IV FLUIDS INFUSING AT KVO; IV SITE APPEARS HEALTHY. PLAN OF CARE REVIEWED. PT ENCOURAGED TO VERBALIZE CONCERNS. STATES UNDERSTANDING. SAFETY MEASURES IN PLACE. CALL LIGHT WITHIN REACH.
--- NOTE | 2019-11-29 11:00 | NUR ---
WIN AUGUST AT BEDSIDE FOR PHOTORADIO OPERATOR CONSULTATION.
--- NOTE | 2019-11-29 12:00 | NUR ---
DIET ADVANCED TO 2GM NA++; TOLERATING WELL.
--- NOTE | 2019-11-29 16:00 | NUR ---
PT SITTING UP IN BED TALKING ON CELL PHONE. NO REQUESTS OR CONCERNS AT THIS TIME. IV FLUIDS INFUSING WITHOUT DIFFICULTY; IV SITE APPEARS HEATLHY. ON ROOM AIR FOR ENTIRE SHIFT. TELE ON. CALL LIGHT WITHIN REACH.
--- NOTE | 2019-11-29 19:10 | NUR ---
REPORT FROM SUSHANT MALAGON. PT RESTING IN BED. NO APPARENT DISTRESS NOTED. RESPIRATIONS EVEN AND UNLABORED, ON RA. IV SITE APPEARS HEALTHY. MANAGER SMALL BUSINESS IN PLACE. PT DENIES ANY PAIN OR DISCOMFORT AT THIS TIME. DISCUSSED POC AND SAFETY PRECAUTIONS. PT VERBALIZED UNDERSTANDING. CALL LIGHT WITHIN REACH. WILL CONTINUE TO MONITOR.
--- NOTE | 2019-11-29 21:03 | NUR ---
PT MEDICATED ORDERED. NO APPARENT DISTRESS NOTED. PT DENIES ANY CURRENT WANTS OR NEEDS. CALL LIGHT WITHIN REACH. WILL CONTINUE TO MONITOR.
[2019-11-30 00:29] VITALS: BP 156/85
--- NOTE | 2019-11-30 00:50 | NUR ---
IV ABT INFUSING WITHOUT DIFFICULTY. PT REQUESTING WARM MILK TO HELP HER SLEEP, PROVIDED AT THIS TIME. NO APPARENT DISTRESS NOTED. CALL LIGHT WITHIN REACH. WILL CONTINUE TO MONITOR.
[2019-11-30 04:50] VITALS: BP 125/67
--- NOTE | 2019-11-30 04:50 | NUR ---
PT RESTING IN BED WITH EYES CLOSED. WAKES EASILY. NO APPARENT DISTRESS NOTED. VSS. CALL LIGHT WITHIN REACH. WILL CONTINUE TO MONITOR.
[2019-11-30 04:52] LABS: HEMATOCRIT 33.6 % (37.0-47.0); HEMOGLOBIN 10.5 g/dl (12.0-16.0); IMMATURE GRANULOCYTES 0.2 % (0.0-5.0); MEAN CELL VOLUME 89.6 fL CALC (80.0-100.0); MEAN CORPUSCULAR HGB CONC 31.3 g/dL CAL (32.0-36.0); NEUT# 2.34 thou/uL (2.00-7.15); RED BLOOD COUNT 3.75 mill/uL (4.20-5.60); RED CELL DISTRI WIDTH 14.5 % (11.5-15.5)
[2019-11-30 05:17] LABS: ALBUMIN 2.9 g/dL (3.2-5.0); CREATININE 1.1 mg/dL (0.5-1.0); MAGNESIUM 1.9 mg/dL (1.6-2.3); POTASSIUM 3.6 mmol/l (3.5-5.1); TOTAL PROTEIN 5.4 g/dL (6.3-8.2)
[2019-11-30 05:22] LABS: BILIRUBIN, TOTAL 0.6 mg/dL (0.0-1.4)
--- NOTE | 2019-11-30 07:30 | NUR ---
REPORT RECEIVED FROM CRISTIANE ANN. PT RESTING IN BED SEMI FOWLERS; ALERT AND ORIENTED. DENIES PAIN CURRENTLY. RESPIRATIONS EVEN AND UNLABORED ON ROOM AIR. VSS; BP 149/82. DENIES NAUSEA AND SOB. TALKATIVE AND PLEASANT. IV FLUIDS INFUSING AT KVO; IV SITE APPEARS HEATLHY. PLAN OF CARE REVIEWED. PT ENCOURAGED TO VEBRALIZE CONCERNS. STATES UNDERSTANDING. SAFETY MEASURES IN PLACE. CALL LIGT WITHIN REACH.
[2019-11-30 08:00] VITALS: BP 149/82
--- NOTE | 2019-11-30 08:30 | NUR ---
DR. AYALA AT BEDSIDE.
[2019-11-30] MEDS ORDERED: ALDACTONE25 MG PO (10:49)
[2019-11-30] MEDS ORDERED: AUGMENTIN500TAB PO (10:50)
[2019-11-30] MEDS ORDERED: PROTONIX40 M3 PO (10:54)
[2019-11-30 11:39] VITALS: BP 173/86
--- NOTE | 2019-11-30 12:01 | NUR ---
IV site discontinued, cath intact. No edema , no redness, voices no discomfort.
--- NOTE | 2019-11-30 12:16 | NUR ---
Discharge instructions given. Patient verbalizes understanding of same. Discharged in stable condition via Wheelchair to Home with family. All belongings sent with pt.
== END 2019-11-30 12:16 | disposition home health service (06) ==
LOC: ED 00:49 → ED-I 04:55 → ED 05:26 → MS2 05:27
PROVIDERS: Emergency Medicine; Nurse Practitioner; ADMIT Internal Medicine; ATTEND Internal Medicine
DX: K80.10 Calculus of gallbladder with chronic cholecystitis without obstruction (principal); L03.115 Cellulitis of right lower limb; I10 Essential (primary) hypertension; I49.8 Other specified cardiac arrhythmias; R60.0 Localized edema; E87.6 Hypokalemia; R53.1 Weakness; Z91.81 History of falling; Z92.3 Personal history of irradiation; Z87.440 Personal history of urinary (tract) infections; Z92.21 Personal history of antineoplastic chemotherapy; Z93.3 Colostomy status; Z85.038 Personal history of other malignant neoplasm of large intestine; Z90.49 Acquired absence of other specified parts of digestive tract; Z20.828 Contact with and (suspected) exposure to other viral communicable diseases
CPT/HCPCS: G0378; J1650; S0164

== ENCOUNTER 2020-07-20 03:40 | Emergency (ER) | payer MEDICARE, OTHER ==
[~2020-07-20 03:40] MED LIST changes: +ALDACTONE25 MG PO; +AUGMENTIN500TAB PO; +LOSARTAN POTASS25 MG PO; +PROTONIX40 M3 PO
[2020-07-20 04:26] LABS: HEMATOCRIT 39.4 % (37.0-47.0); HEMOGLOBIN 12.4 g/dl (12.0-16.0); IMMATURE GRANULOCYTES 0.2 % (0.0-5.0); MEAN CELL VOLUME 91.6 fL CALC (80.0-100.0); MEAN CORPUSCULAR HGB 28.8 pG CALC (26.0-32.0); MEAN CORPUSCULAR HGB CONC 31.5 g/dL CAL (32.0-36.0); NEUT# 2.09 thou/uL (2.00-7.15); RED BLOOD COUNT 4.3 mill/uL (4.20-5.60)
[2020-07-20 04:45] LABS: ACT PARTIAL THROMBO TIME 25.2 SECONDS (20.0-32.5); PROTHROMBIN TIME 9.7 SECONDS (9.0-12.5)
[2020-07-20 04:49] LABS: ALBUMIN 3.8 g/dL (3.2-5.0); ALKALINE PHOSPHATASE 105 u/l (38-126); ANION GAP 11 (6-22 (CALC)); BILIRUBIN, TOTAL 0.6 mg/dL (0.0-1.4); BUN 25 mg/dL (8-23); BUN/CREATININE RATIO 24 (12-20 (CALC)); CARBON DIOXIDE 26 mmol/l (22-30); CHLORIDE 105 mmol/l (95-108); CREATININE 1.1 mg/dL (0.5-1.0); GFR 47 ML/MIN (>=60 (CALC)); GFR FOR AFR.AMER. 57 ML/MIN (>=60 (CALC)); SGOT/AST 26 u/l (9-36); SODIUM 138 mmol/l (137-146); TOTAL PROTEIN 6.7 g/dL (6.3-8.2)
[2020-07-20 05:11] VITALS: BP 144/108
== END 2020-07-20 05:11 | disposition left against medical advice (07) ==
LOC: ED 03:40
PROVIDERS: Emergency Medicine
DX: G45.9 Transient cerebral ischemic attack, unspecified (principal); R42 Dizziness and giddiness; I10 Essential (primary) hypertension; Z85.038 Personal history of other malignant neoplasm of large intestine; Z90.49 Acquired absence of other specified parts of digestive tract; Z91.19 Patient's noncompliance with other medical treatment and regimen; Z92.3 Personal history of irradiation; Z92.21 Personal history of antineoplastic chemotherapy; Z86.718 Personal history of other venous thrombosis and embolism

== ENCOUNTER 2021-03-05 14:11 | Observation (INO) | payer MEDICARE, OTHER ==
[~2021-03-05] VITALS: Ht 157.5 cm; Wt 84.0 kg
[2021-03-05 15:15] LABS: HEMATOCRIT 38.3 % (37.0-47.0); HEMOGLOBIN 12.6 g/dl (12.0-16.0); IMMATURE GRANULOCYTES 0.2 % (0.0-5.0); MEAN CELL VOLUME 90.5 fL CALC (80.0-100.0); MEAN CORPUSCULAR HGB 29.8 pG CALC (26.0-32.0); MEAN CORPUSCULAR HGB CONC 32.9 g/dL CAL (32.0-36.0); NEUT# 2.69 thou/uL (2.00-7.15); RED BLOOD COUNT 4.23 mill/uL (4.20-5.60); RED CELL DISTRI WIDTH 13.6 % (11.5-15.5)
[2021-03-05 15:49] LABS: ALBUMIN 3.6 g/dL (3.2-5.0); ALKALINE PHOSPHATASE 112 u/l (38-126); ANION GAP 11 (6-22 (CALC)); BILIRUBIN, TOTAL 0.6 mg/dL (0.0-1.4); BUN 14 mg/dL (8-23); BUN/CREATININE RATIO 14 (12-20 (CALC)); CARBON DIOXIDE 25 mmol/l (22-30); CHLORIDE 106 mmol/l (95-108); CREATININE 1.1 mg/dL (0.5-1.0); GFR 47 ML/MIN (>=60 (CALC)); GFR FOR AFR.AMER. 57 ML/MIN (>=60 (CALC)); POTASSIUM 3.9 mmol/l (3.5-5.1); SGOT/AST 27 u/l (9-36); SODIUM 138 mmol/l (137-146)
[2021-03-05 15:51] LABS: INTERNATIONAL NORMALIZED RATIO 0.9 RATIO (0.7-1.3); PROTHROMBIN TIME 9.4 SECONDS (9.0-12.5)
[2021-03-05 16:06] LABS: URINE BILIRUBIN - DIPSTICK NEGATIVE (NEGATIVE); URINE BLOOD DIPSTICK NEGATIVE (NEGATIVE); URINE COLOR YELLOW; URINE GLUCOSE - DIPSTICK NEGATIVE (NEGATIVE); URINE KETONE NEGATIVE (NEGATIVE); URINE LEUK ESTERASE TRACE (NEGATIVE); URINE PROTEIN - DIPSTICK NEGATIVE (NEG-TRACE); URINE SPECIFIC GRAVITY <=1.005; URINE UROBILINOGEN - DIPSTICK 0.2 E.U./dL (0.2)
[2021-03-05 16:08] LABS: URINE NITRITE - DIPSTICK POSITIVE (Negative)
[2021-03-05 16:17] LABS: URINE BACTERIA RARE hpf; URINE RBC 0-2 RBC/hpf (0-5); URINE SQUAMOUS EPITHELIAL CELL MODERATE EPI/hpf (0-FEW)
[2021-03-05 17:47] LABS: ALBUMIN 3.9 g/dL (3.2-5.0); ALKALINE PHOSPHATASE 114 u/l (38-126); BILIRUBIN, TOTAL 0.6 mg/dL (0.0-1.4); C-REACTIVE PROTEIN 0.7 mg/dL (0-0.9); CALCULATED LDLCHOLESTEROL 160 mg/dL (62-129 (CALC)); CHOLESTEROL HDL RATIO 4.3 (<4.4 (CALC)); HDL CHOLESTEROL 55 mg/dL (>=40); SGOT/AST 30 u/l (9-36); TOTAL CHOLESTEROL 235 mg/dl (0-199); TOTAL PROTEIN 7.4 g/dL (6.3-8.2); TOTAL TRIGLYCERIDES 104 mg/dl (30-149); VLDL CHOLESTROL 21 mg/dl (0-48 (CALC))
[2021-03-05 18:40] VITALS: BP 187/81
[2021-03-05 23:48] VITALS: BP 133/60
[2021-03-06 03:55] VITALS: BP 139/56
[2021-03-06 05:32] LABS: HEMATOCRIT 38.4 % (37.0-47.0); HEMOGLOBIN 12.7 g/dl (12.0-16.0); IMMATURE GRANULOCYTES 0.4 % (0.0-5.0); MEAN CELL VOLUME 89.9 fL CALC (80.0-100.0); MEAN CORPUSCULAR HGB 29.7 pG CALC (26.0-32.0); MEAN CORPUSCULAR HGB CONC 33.1 g/dL CAL (32.0-36.0); NEUT# 2.36 thou/uL (2.00-7.15); RED BLOOD COUNT 4.27 mill/uL (4.20-5.60); RED CELL DISTRI WIDTH 13.6 % (11.5-15.5)
[2021-03-06 06:01] LABS: ALBUMIN 3.2 g/dL (3.2-5.0); ALKALINE PHOSPHATASE 88 u/l (38-126); ANION GAP 11 (6-22 (CALC)); BILIRUBIN, TOTAL 0.7 mg/dL (0.0-1.4); BUN 12 mg/dL (8-23); BUN/CREATININE RATIO 13 (12-20 (CALC)); CARBON DIOXIDE 26 mmol/l (22-30); CHLORIDE 106 mmol/l (95-108); GFR 52 ML/MIN (>=60 (CALC)); GFR FOR AFR.AMER. > 60 ML/MIN (>=60 (CALC)); POTASSIUM 3.7 mmol/l (3.5-5.1); SGOT/AST 24 u/l (9-36); SODIUM 139 mmol/l (137-146); TOTAL PROTEIN 6.1 g/dL (6.3-8.2)
[2021-03-06 07:58] VITALS: BP 140/65
[2021-03-06 11:08] VITALS: BP 155/73
[2021-03-06 14:30] VITALS: BP 162/69
[2021-03-06 19:00] VITALS: BP 157/71
[2021-03-07] VITALS: BP 176/73
[2021-03-07 04:00] VITALS: BP 170/79
[2021-03-07 05:38] LABS: HEMATOCRIT 40.7 % (37.0-47.0); HEMOGLOBIN 12.9 g/dl (12.0-16.0); MEAN CORPUSCULAR HGB 29.8 pG CALC (26.0-32.0); MEAN CORPUSCULAR HGB CONC 31.7 g/dL CAL (32.0-36.0); RED BLOOD COUNT 4.33 mill/uL (4.20-5.60); RED CELL DISTRI WIDTH 13.7 % (11.5-15.5)
[2021-03-07 05:59] VITALS: BP 135/78
[2021-03-07 06:00] LABS: CREATININE 1.1 mg/dL (0.5-1.0)
[2021-03-07 08:08] VITALS: BP 181/75
[2021-03-07] MEDS ORDERED: CIPROFLOXACN500 MG PO (10:44)
[2021-03-07] MEDS ORDERED: ADLT ASA LOW81 MG PO (10:45)
[2021-03-07] MEDS ORDERED: ATORVASTATIN CA40 MG PO (10:46)
[2021-03-07 11:52] VITALS: BP 197/90
[2021-03-07 13:07] VITALS: BP 184/75
[2021-03-09 16:33] LABS: CK-BB 10 % (SEE COMMENT)
== END 2021-03-07 14:50 | disposition home health service (06) ==
LOC: ED 14:11 → ED-I 16:50 → ED 17:09 → MS2 17:10
PROVIDERS: Family Medicine; Nurse Practitioner; ADMIT Internal Medicine; ATTEND Internal Medicine
DX: G45.9 Transient cerebral ischemic attack, unspecified (principal); N30.90 Cystitis, unspecified without hematuria; N17.9 Acute kidney failure, unspecified; I12.9 Hypertensive chronic kidney disease with stage 1 through stage 4 chronic kidney disease, or unspecified chronic kidney disease; N18.9 Chronic kidney disease, unspecified; I69.944 Monoplegia of lower limb following unspecified cerebrovascular disease affecting left non-dominant side; I69.992 Facial weakness following unspecified cerebrovascular disease; B96.89 Other specified bacterial agents as the cause of diseases classified elsewhere; Z86.718 Personal history of other venous thrombosis and embolism; Z85.038 Personal history of other malignant neoplasm of large intestine; Z90.49 Acquired absence of other specified parts of digestive tract; Z91.041 Radiographic dye allergy status; Z20.822 Contact with and (suspected) exposure to COVID-19

== ENCOUNTER 2021-03-17 21:56 | Emergency (ER) | payer MEDICARE, OTHER ==
[~2021-03-17] VITALS: Ht 157.5 cm; Wt 82.0 kg
[~2021-03-17 21:56] MED LIST changes: +ADLT ASA LOW81 MG PO; +ATORVASTATIN CA40 MG PO; +CIPROFLOXACN500 MG PO
[2021-03-18] MEDS ORDERED: IBUPROFEN600 MG PO (02:14)
[2021-03-18 02:30] VITALS: BP 187/83
== END 2021-03-18 02:35 | disposition home or self-care (01) ==
LOC: ED 21:56
DX: S90.31XA Contusion of right foot, initial encounter (principal); I10 Essential (primary) hypertension; W20.8XXA Other cause of strike by thrown, projected or falling object, initial encounter; Y93.89 Activity, other specified; Y92.009 Unspecified place in unspecified non-institutional (private) residence as the place of occurrence of the external cause; Z86.73 Personal history of transient ischemic attack (TIA), and cerebral infarction without residual deficits; Z86.718 Personal history of other venous thrombosis and embolism

== ENCOUNTER 2021-08-19 15:10 | Inpatient (IN) | payer MEDICARE, OTHER ==
[2021-08-19] VITALS (16 sets, daily range): BP systolic 123–184; BP diastolic 62–107
[~2021-08-19] VITALS: Ht 157.5 cm; Wt 84.0 kg
[~2021-08-19 15:10] MED LIST changes: +IBUPROFEN600 MG PO
[2021-08-19 17:02] LABS: HEMATOCRIT 41.2 % (37.0-47.0); HEMOGLOBIN 12.8 g/dl (12.0-16.0); MEAN CELL VOLUME 93.4 fL CALC (80.0-100.0); MEAN CORPUSCULAR HGB CONC 31.1 g/dL CAL (32.0-36.0); NEUT# 3.1 thou/uL (2.00-7.15); RED BLOOD COUNT 4.41 mill/uL (4.20-5.60); RED CELL DISTRI WIDTH 14.2 % (11.5-15.5)
[2021-08-19 17:21] LABS: ALKALINE PHOSPHATASE 90 u/l (38-126); ANION GAP 14 (6-22 (CALC)); BILIRUBIN, TOTAL 0.7 mg/dL (0.0-1.4); BUN 20 mg/dL (8-23); BUN/CREATININE RATIO 20 (12-20 (CALC)); CARBON DIOXIDE 21 mmol/l (22-30); CHLORIDE 109 mmol/l (95-108); GFR FOR AFR.AMER. > 60 ML/MIN (>=60 (CALC)); GFR OTHER RACES 52 ML/MIN (>=60 (CALC)); POTASSIUM 3.7 mmol/l (3.5-5.1); SGOT/AST 27 u/l (9-36); SODIUM 140 mmol/l (137-146)
[2021-08-19 17:33] LABS: MYOGLOBIN 86 ng/mL (0 - 62)
[2021-08-19 18:59] LABS: URINE BILIRUBIN - DIPSTICK NEGATIVE (NEGATIVE); URINE BLOOD DIPSTICK NEGATIVE (NEGATIVE); URINE COLOR YELLOW; URINE GLUCOSE - DIPSTICK NEGATIVE (NEGATIVE); URINE KETONE NEGATIVE (NEGATIVE); URINE LEUK ESTERASE NEGATIVE (NEGATIVE); URINE PROTEIN - DIPSTICK NEGATIVE (NEG-TRACE); URINE SPECIFIC GRAVITY >=1.030; URINE UROBILINOGEN - DIPSTICK 0.2 E.U./dL (0.2)
[2021-08-19 19:00] LABS: URINE NITRITE - DIPSTICK NEGATIVE (Negative)
[2021-08-19 19:41] LABS: TSH, 3RD GENERATION 1.45 uIU/mL (0.47 - 4.68)
[2021-08-20] VITALS (51 sets, daily range): BP systolic 93–155; BP diastolic 54–97
[2021-08-20 04:05] LABS: CHOLESTEROL HDL RATIO 3.1 (<4.4 (CALC)); MAGNESIUM 1.8 mg/dL (1.6-2.3)
[2021-08-20] MEDS ORDERED: MOTRIN800 MG PO (09:44)
[2021-08-20] MEDS ORDERED: MELATONIN10 M1 PO (09:46)
[2021-08-20] MEDS ORDERED: COZAAR25 MG PO (09:49)
[2021-08-20] MEDS ORDERED: FISH OIL OMEGA-1 CAP PO (10:04)
[2021-08-20] MEDS ORDERED: POTASSIUM99 MG PO (10:05)
[2021-08-21] VITALS (29 sets, daily range): BP systolic 89–183; BP diastolic 48–153
[2021-08-21 05:24] LABS: HEMATOCRIT 41.3 % (37.0-47.0); HEMOGLOBIN 12.8 g/dl (12.0-16.0); MEAN CORPUSCULAR HGB 28.5 pG CALC (26.0-32.0); RED BLOOD COUNT 4.49 mill/uL (4.20-5.60); RED CELL DISTRI WIDTH 14.2 % (11.5-15.5)
[2021-08-21 05:44] LABS: ANION GAP 12 (6-22 (CALC)); BUN 13 mg/dL (8-23); BUN/CREATININE RATIO 17 (12-20 (CALC)); CARBON DIOXIDE 21 mmol/l (22-30); CHLORIDE 110 mmol/l (95-108); CREATININE 0.8 mg/dL (0.5-1.0); GFR FOR AFR.AMER. > 60 ML/MIN (>=60 (CALC)); GFR OTHER RACES > 60 ML/MIN (>=60 (CALC)); MAGNESIUM 1.8 mg/dL (1.6-2.3); POTASSIUM 3.5 mmol/l (3.5-5.1); SODIUM 139 mmol/l (137-146)
[2021-08-21 22:26] LABS: ALBUMIN 3.4 g/dL (3.2-5.0); ALKALINE PHOSPHATASE 79 u/l (38-126); ANION GAP 11 (6-22 (CALC)); BILIRUBIN, TOTAL 0.9 mg/dL (0.0-1.4); BUN 11 mg/dL (8-23); BUN/CREATININE RATIO 14 (12-20 (CALC)); CARBON DIOXIDE 25 mmol/l (22-30); CHLORIDE 102 mmol/l (95-108); CREATININE 0.8 mg/dL (0.5-1.0); GFR FOR AFR.AMER. > 60 ML/MIN (>=60 (CALC)); GFR OTHER RACES > 60 ML/MIN (>=60 (CALC)); MAGNESIUM 1.5 mg/dL (1.6-2.3); SGOT/AST 25 u/l (9-36); SODIUM 134 mmol/l (137-146)
[2021-08-22] VITALS (22 sets, daily range): BP systolic 110–160; BP diastolic 59–130
[2021-08-22 05:46] LABS: ALBUMIN 3.3 g/dL (3.2-5.0); ALKALINE PHOSPHATASE 85 u/l (38-126); ANION GAP 12 (6-22 (CALC)); BILIRUBIN, TOTAL 0.9 mg/dL (0.0-1.4); BUN 10 mg/dL (8-23); BUN/CREATININE RATIO 13 (12-20 (CALC)); CARBON DIOXIDE 24 mmol/l (22-30); CHLORIDE 103 mmol/l (95-108); CREATININE 0.8 mg/dL (0.5-1.0); GFR FOR AFR.AMER. > 60 ML/MIN (>=60 (CALC)); GFR OTHER RACES > 60 ML/MIN (>=60 (CALC)); POTASSIUM 3.6 mmol/l (3.5-5.1); SGOT/AST 23 u/l (9-36); SODIUM 135 mmol/l (137-146); TOTAL PROTEIN 5.9 g/dL (6.3-8.2)
[2021-08-23] VITALS (15 sets, daily range): BP systolic 120–171; BP diastolic 87–128
[2021-08-23 06:03] LABS: HEMOGLOBIN 12.4 g/dl (12.0-16.0); MEAN CELL VOLUME 93.5 fL CALC (80.0-100.0); MEAN CORPUSCULAR HGB 29.7 pG CALC (26.0-32.0); MEAN CORPUSCULAR HGB CONC 31.8 g/dL CAL (32.0-36.0); RED BLOOD COUNT 4.17 mill/uL (4.20-5.60); RED CELL DISTRI WIDTH 14.3 % (11.5-15.5)
[2021-08-23 06:17] LABS: ALKALINE PHOSPHATASE 78 u/l (38-126); ANION GAP 10 (6-22 (CALC)); BILIRUBIN, TOTAL 0.6 mg/dL (0.0-1.4); BUN 12 mg/dL (8-23); BUN/CREATININE RATIO 15 (12-20 (CALC)); CARBON DIOXIDE 26 mmol/l (22-30); CHLORIDE 105 mmol/l (95-108); CREATININE 0.8 mg/dL (0.5-1.0); GFR FOR AFR.AMER. > 60 ML/MIN (>=60 (CALC)); GFR OTHER RACES > 60 ML/MIN (>=60 (CALC)); MAGNESIUM 1.9 mg/dL (1.6-2.3); POTASSIUM 3.8 mmol/l (3.5-5.1); SGOT/AST 24 u/l (9-36); SODIUM 136 mmol/l (137-146); TOTAL PROTEIN 5.6 g/dL (6.3-8.2)
[2021-08-24] VITALS (15 sets, daily range): BP systolic 141–189; BP diastolic 84–150
[2021-08-25] VITALS (11 sets, daily range): BP systolic 104–166; BP diastolic 82–108
[2021-08-25 06:37] LABS: HEMATOCRIT 40.3 % (37.0-47.0); HEMOGLOBIN 12.6 g/dl (12.0-16.0); IMMATURE GRANULOCYTES 0.2 % (0.0-5.0); MEAN CELL VOLUME 92.9 fL CALC (80.0-100.0); MEAN CORPUSCULAR HGB CONC 31.3 g/dL CAL (32.0-36.0); NEUT# 3.48 thou/uL (2.00-7.15); RED BLOOD COUNT 4.34 mill/uL (4.20-5.60); RED CELL DISTRI WIDTH 14.1 % (11.5-15.5)
[2021-08-25 07:06] LABS: ANION GAP 10 (6-22 (CALC)); BUN 15 mg/dL (8-23); BUN/CREATININE RATIO 20 (12-20 (CALC)); CARBON DIOXIDE 24 mmol/l (22-30); CHLORIDE 106 mmol/l (95-108); CREATININE 0.7 mg/dL (0.5-1.0); GFR FOR AFR.AMER. > 60 ML/MIN (>=60 (CALC)); GFR OTHER RACES > 60 ML/MIN (>=60 (CALC)); POTASSIUM 3.4 mmol/l (3.5-5.1); SODIUM 137 mmol/l (137-146)
[2021-08-25] MEDS ORDERED: COZAAR25 MG PO (13:16)
[2021-08-25] MEDS ORDERED: LOPRESSOR25 MG PO (13:17)
[2021-08-25] MEDS ORDERED: ELIQUIS2.5 MG PO (13:18)
[2021-08-25] MEDS ORDERED: CORDARONE/200 MG/TAB PO (13:18)
== END 2021-08-25 15:26 | disposition home or self-care (01) | DRG 310 ==
LOC: ED 15:10 → ICU 20:40
PROVIDERS: Emergency Medicine; Internal Medicine; ADMIT Internal Medicine; ATTEND Internal Medicine
DX: I48.91 Unspecified atrial fibrillation (principal); I10 Essential (primary) hypertension; Z86.73 Personal history of transient ischemic attack (TIA), and cerebral infarction without residual deficits; Z90.49 Acquired absence of other specified parts of digestive tract; Z93.3 Colostomy status; Z85.038 Personal history of other malignant neoplasm of large intestine; Z92.21 Personal history of antineoplastic chemotherapy; Z92.3 Personal history of irradiation; Z86.718 Personal history of other venous thrombosis and embolism; Z20.822 Contact with and (suspected) exposure to COVID-19
CPT/HCPCS: J1650; J3475

== ENCOUNTER 2021-10-11 08:50 | Inpatient (IN) | payer MEDICARE, OTHER ==
[2021-10-11] VITALS (43 sets, daily range): BP systolic 94–192; BP diastolic 57–153
[~2021-10-11] VITALS: Ht 157.5 cm; Wt 79.0 kg
[~2021-10-11 08:50] MED LIST changes: +CORDARONE/200 MG/TAB PO; +COZAAR25 MG PO; +ELIQUIS2.5 MG PO; +FISH OIL OMEGA-1 CAP PO; +LOPRESSOR25 MG PO; +MELATONIN10 M1 PO; +MOTRIN800 MG PO; +POTASSIUM99 MG PO
[2021-10-11 09:19] LABS: HEMATOCRIT 38.2 % (37.0-47.0); HEMOGLOBIN 12.2 g/dl (12.0-16.0); MEAN CELL VOLUME 89.9 fL CALC (80.0-100.0); MEAN CORPUSCULAR HGB 28.7 pG CALC (26.0-32.0); MEAN CORPUSCULAR HGB CONC 31.9 g/dL CAL (32.0-36.0); NEUT# 2.16 thou/uL (2.00-7.15); RED BLOOD COUNT 4.25 mill/uL (4.20-5.60); RED CELL DISTRI WIDTH 14.5 % (11.5-15.5)
[2021-10-11 09:29] LABS: BILIRUBIN, TOTAL 0.6 mg/dL (0.0-1.4); CREATININE 1.1 mg/dL (0.5-1.0); POTASSIUM 3.6 mmol/l (3.5-5.1); TOTAL PROTEIN 6.7 g/dL (6.3-8.2)
[2021-10-11 09:41] LABS: ALBUMIN 3.7 g/dL (3.2-5.0)
[2021-10-11 15:27] LABS: URINE BILIRUBIN - DIPSTICK NEGATIVE (NEGATIVE); URINE BLOOD DIPSTICK NEGATIVE (NEGATIVE); URINE COLOR YELLOW; URINE GLUCOSE - DIPSTICK NEGATIVE (NEGATIVE); URINE KETONE NEGATIVE (NEGATIVE); URINE LEUK ESTERASE NEGATIVE (NEGATIVE); URINE PROTEIN - DIPSTICK NEGATIVE (NEG-TRACE); URINE UROBILINOGEN - DIPSTICK 0.2 E.U./dL (0.2)
[2021-10-11 15:31] LABS: URINE NITRITE - DIPSTICK NEGATIVE (Negative)
[2021-10-12] VITALS (60 sets, daily range): BP systolic 105–198; BP diastolic 57–111
[2021-10-12 05:35] LABS: HEMATOCRIT 41.1 % (37.0-47.0); IMMATURE GRANULOCYTES 0.1 % (0.0-5.0); MEAN CELL VOLUME 89.9 fL CALC (80.0-100.0); MEAN CORPUSCULAR HGB 28.4 pG CALC (26.0-32.0); MEAN CORPUSCULAR HGB CONC 31.6 g/dL CAL (32.0-36.0); NEUT# 5.06 thou/uL (2.00-7.15); RED BLOOD COUNT 4.57 mill/uL (4.20-5.60); RED CELL DISTRI WIDTH 14.5 % (11.5-15.5)
[2021-10-12 05:52] LABS: CREATININE 1.1 mg/dL (0.5-1.0); POTASSIUM 3.8 mmol/l (3.5-5.1)
[2021-10-13] VITALS (24 sets, daily range): BP systolic 82–163; BP diastolic 57–131
[2021-10-13 05:55] LABS: HEMOGLOBIN 13.4 g/dl (12.0-16.0); IMMATURE GRANULOCYTES 0.3 % (0.0-5.0); MEAN CELL VOLUME 88.2 fL CALC (80.0-100.0); MEAN CORPUSCULAR HGB 28.8 pG CALC (26.0-32.0); MEAN CORPUSCULAR HGB CONC 32.7 g/dL CAL (32.0-36.0); NEUT# 5.72 thou/uL (2.00-7.15); RED BLOOD COUNT 4.65 mill/uL (4.20-5.60); RED CELL DISTRI WIDTH 14.4 % (11.5-15.5)
[2021-10-13 06:06] LABS: ANION GAP 10 (6-22 (CALC)); BUN 12 mg/dL (8-23); BUN/CREATININE RATIO 14 (12-20 (CALC)); CARBON DIOXIDE 25 mmol/l (22-30); CHLORIDE 101 mmol/l (95-108); CREATININE 0.8 mg/dL (0.5-1.0); GFR FOR AFR.AMER. > 60 ML/MIN (>=60 (CALC)); GFR OTHER RACES > 60 ML/MIN (>=60 (CALC)); POTASSIUM 3.4 mmol/l (3.5-5.1); SODIUM 133 mmol/l (137-146)
[2021-10-14] VITALS (32 sets, daily range): BP systolic 127–207; BP diastolic 74–162
[2021-10-14 06:16] LABS: ANION GAP 11 (6-22 (CALC)); BUN 16 mg/dL (8-23); BUN/CREATININE RATIO 17 (12-20 (CALC)); CARBON DIOXIDE 24 mmol/l (22-30); CHLORIDE 104 mmol/l (95-108); CREATININE 0.9 mg/dL (0.5-1.0); GFR FOR AFR.AMER. > 60 ML/MIN (>=60 (CALC)); GFR OTHER RACES 59 ML/MIN (>=60 (CALC)); POTASSIUM 3.8 mmol/l (3.5-5.1); SODIUM 136 mmol/l (137-146)
[2021-10-15] VITALS (21 sets, daily range): BP systolic 95–158; BP diastolic 58–104
[2021-10-16] VITALS (52 sets, daily range): BP systolic 86–188; BP diastolic 52–130
[2021-10-16 06:07] LABS: HEMATOCRIT 42.5 % (37.0-47.0); HEMOGLOBIN 13.4 g/dl (12.0-16.0); MEAN CELL VOLUME 90.8 fL CALC (80.0-100.0); MEAN CORPUSCULAR HGB 28.6 pG CALC (26.0-32.0); MEAN CORPUSCULAR HGB CONC 31.5 g/dL CAL (32.0-36.0); RED BLOOD COUNT 4.68 mill/uL (4.20-5.60); RED CELL DISTRI WIDTH 14.6 % (11.5-15.5)
[2021-10-16 06:35] LABS: ALBUMIN 3.2 g/dL (3.2-5.0); ALKALINE PHOSPHATASE 80 u/l (38-126); ANION GAP 12 (6-22 (CALC)); BILIRUBIN, TOTAL 0.6 mg/dL (0.0-1.4); BUN 17 mg/dL (8-23); BUN/CREATININE RATIO 19 (12-20 (CALC)); CARBON DIOXIDE 24 mmol/l (22-30); CHLORIDE 105 mmol/l (95-108); CREATININE 0.9 mg/dL (0.5-1.0); GFR FOR AFR.AMER. > 60 ML/MIN (>=60 (CALC)); GFR OTHER RACES 59 ML/MIN (>=60 (CALC)); MAGNESIUM 1.8 mg/dL (1.6-2.3); POTASSIUM 3.4 mmol/l (3.5-5.1); SGOT/AST 15 u/l (9-36); SODIUM 137 mmol/l (137-146); TOTAL PROTEIN 5.9 g/dL (6.3-8.2)
[2021-10-17] VITALS (31 sets, daily range): BP systolic 111–223; BP diastolic 62–124
[2021-10-17 05:51] LABS: HEMATOCRIT 41.9 % (37.0-47.0); HEMOGLOBIN 13.1 g/dl (12.0-16.0); MEAN CELL VOLUME 91.3 fL CALC (80.0-100.0); MEAN CORPUSCULAR HGB 28.5 pG CALC (26.0-32.0); MEAN CORPUSCULAR HGB CONC 31.3 g/dL CAL (32.0-36.0); RED BLOOD COUNT 4.59 mill/uL (4.20-5.60); RED CELL DISTRI WIDTH 14.6 % (11.5-15.5)
[2021-10-17 06:21] LABS: ANION GAP 8 (6-22 (CALC)); BUN 19 mg/dL (8-23); BUN/CREATININE RATIO 18 (12-20 (CALC)); CARBON DIOXIDE 25 mmol/l (22-30); CHLORIDE 107 mmol/l (95-108); GFR FOR AFR.AMER. > 60 ML/MIN (>=60 (CALC)); GFR OTHER RACES 52 ML/MIN (>=60 (CALC)); MAGNESIUM 1.8 mg/dL (1.6-2.3); SODIUM 136 mmol/l (137-146)
[2021-10-17] MEDS ORDERED: ELIQUIS2.5 MG PO (07:36)
[2021-10-17] MEDS ORDERED: CORDARONE/200 MG/TAB PO (07:36)
[2021-10-17] MEDS ORDERED: XANAX0.25 MG PO (07:37)
[2021-10-17] MEDS ORDERED: LOPRESSOR 550 MG/TAB PO (07:37)
== END 2021-10-17 12:30 | disposition home or self-care (01) | DRG 309 ==
LOC: ED 08:50 → ED-I 09:42 → ED 09:42 → ED-I 10:30 → ED 10:53 → MS2 10:54 → ICU 21:16
PROVIDERS: Family Medicine; Internal Medicine; ADMIT Internal Medicine; ATTEND Internal Medicine
DX: I48.19 Other persistent atrial fibrillation (principal); N17.9 Acute kidney failure, unspecified; I13.0 Hypertensive heart and chronic kidney disease with heart failure and stage 1 through stage 4 chronic kidney disease, or unspecified chronic kidney disease; I50.22 Chronic systolic (congestive) heart failure; N18.30 Chronic kidney disease, stage 3 unspecified; I34.0 Nonrheumatic mitral (valve) insufficiency; F41.0 Panic disorder [episodic paroxysmal anxiety]; T46.2X6A Underdosing of other antidysrhythmic drugs, initial encounter; T44.7X6A Underdosing of beta-adrenoreceptor antagonists, initial encounter; Z91.128 Patient's intentional underdosing of medication regimen for other reason; Z93.3 Colostomy status; Z85.038 Personal history of other malignant neoplasm of large intestine; Z86.73 Personal history of transient ischemic attack (TIA), and cerebral infarction without residual deficits; Z86.718 Personal history of other venous thrombosis and embolism; Z79.01 Long term (current) use of anticoagulants; Z90.49 Acquired absence of other specified parts of digestive tract; Z92.21 Personal history of antineoplastic chemotherapy; Z92.3 Personal history of irradiation; Z20.822 Contact with and (suspected) exposure to COVID-19
CPT/HCPCS: G0378; J1160

== ENCOUNTER 2021-10-19 19:48 | Emergency (ER) | payer MEDICARE, OTHER ==
[~2021-10-19] VITALS: Ht 157.5 cm; Wt 79.5 kg
[~2021-10-19 19:48] MED LIST changes: +LOPRESSOR 550 MG/TAB PO; +XANAX0.25 MG PO
[2021-10-19 19:58] VITALS: BP 161/101
[2021-10-19 20:00] VITALS: BP 174/98
[2021-10-19 20:16] VITALS: BP 159/92
[2021-10-19 21:01] VITALS: BP 148/99
[2021-10-19 21:16] VITALS: BP 147/82
[2021-10-19 21:22] VITALS: BP 147/82
== END 2021-10-19 21:32 | disposition home or self-care (01) ==
LOC: ED 19:48
DX: S06.0X9A Concussion with loss of consciousness of unspecified duration, initial encounter (principal); S16.1XXA Strain of muscle, fascia and tendon at neck level, initial encounter; S09.90XA Unspecified injury of head, initial encounter; S30.0XXA Contusion of lower back and pelvis, initial encounter; I10 Essential (primary) hypertension; I48.91 Unspecified atrial fibrillation; W01.190A Fall on same level from slipping, tripping and stumbling with subsequent striking against furniture, initial encounter; Y93.F9 Activity, other caregiving; Y92.009 Unspecified place in unspecified non-institutional (private) residence as the place of occurrence of the external cause; Z85.038 Personal history of other malignant neoplasm of large intestine; Z90.49 Acquired absence of other specified parts of digestive tract; Z86.73 Personal history of transient ischemic attack (TIA), and cerebral infarction without residual deficits; Z86.718 Personal history of other venous thrombosis and embolism